=== PATIENT | male | born 1970 ===

== ENCOUNTER 2023-12-31 10:13 | Emergency (ER) | payer OTHER, SELFPAY ==
--- NOTE | ~2023-12-31 | XR_ITS ---
EXAMINATION: XR HAND, LEFT CLINICAL INFORMATION: Pain after injury COMPARISON: None available. TECHNIQUE: PA, lateral, and oblique views of the left hand. FINDINGS: Comminuted displaced fracture involving the tuft of the third finger. There is overlying soft tissue edema and soft tissue lucencies consistent with lacerations. No definitive radiopaque foreign bodies. Other visualized portion of the left hand are grossly unremarkable. XR/XR hand LT min 3V IMPRESSION: Comminuted displaced fracture involving the tuft of the third finger. Electronically signed by: Teodoro Lang MD 12/31/2023 12:35 PM EDT
[2023-12-31 10:26] VITALS: BP 119/56; PULSE 76; RESP 18; TEMP 36.8; O2SAT 99; BMI 29.2
--- NOTE | 2023-12-31 11:08 | ED_ITS ---
HPI - General Adult General Chief complaint: Wound/Laceration Stated complaint: laceration l middle finger Time Seen by Provider: 12/31/23 11:08 Source: patient Mode of arrival: ambulatory Limitations: no limitations History of Present Illness ED Provider: Yelena Pond PA-C HPI narrative: Patient is a 53 year old assigned male at with a history of T2DM presenting to the emergency department today with left middle finger pain. Patient states that on 12/30/2023 at 1700 he was moving large metal boxes when one cut his left middle finger. Patient denies any dizziness, lightheadedness, abdominal pain, nausea, vomiting, fever, chills, blurry vision, double vision, loss of vision, chest pain, difficulty breathing, shortness of breath, back pain, night sweats, pain with urination, increased urinary frequency, increased urinary urgency, blood in his urine or stool, syncope or a near syncopal episode, bowel incontinence, bladder incontinence, or any other complaints at this time. Onset (ago): day(s) (1) Location: left and upper extremity (3rd finger) Severity: mild Severity scale (1-10): 4 Quality: aching and dull Pain Consistency: constant Relieving factors: none Exacerbating factors: none Associated symptoms: denies other symptoms Related Data Previous Rx's ?Medication ?Instructions ?Recorded amoxicillin 875 mg-potassium 1 tab PO BID 10 days #20 tabs 12/31/23 clavulanate 125 mg tablet Allergies Allergy/AdvReac Type Severity Reaction Status Date / Time No Known Allergies Allergy Verified 12/31/23 10:28 [No Known Allergies*] Review of Systems 2 Constitutional: Constitutional: Reports no additional constitutional complaints, Denies chills, Denies fever(s) and Denies night sweats Eyes: Eyes: Reports no additional eye complaints, Denies blurry vision, Denies change in vision, Denies diplopia, Denies eye discharge, Denies loss of vision and Denies eye pain ENT: Denies dizziness Cardiovascular: Cardiovascular: Reports no additional cardiovascular complaints, Denies chest pain, Denies lightheadedness, Denies Loss of Consciousness and Denies dyspnea Respiratory: Respiratory: Reports no additional respiratory complaints and Denies dyspnea Gastrointestinal: Gastrointestinal: Reports no additional gastrointestinal complaints, Denies abdominal pain, Denies melena, Denies hematochezia, Denies change in bowel habits and Denies change in stool character Genitourinary: Genitourinary: Reports no additional male genitourinary complaints, Denies hematuria, Denies oliguria, Denies difficulty urinating, Denies dysuria, Denies urinary frequency, Denies urinary hesitancy, Denies urinary incontinence and Denies urinary urgency Musculoskeletal: Musculoskeletal: Reports no additional musculoskeletal complaints, Denies numbness and Denies tingling Comments: left 3rd finger injury Neurologic: Denies dizziness, Denies loss of vision, Denies numbness and Denies tingling Psychiatric: Psychiatric: Reports no additional psychiatric complaints Endocrine: Endocrine: Reports no additional endocrine complaints Hematologic/Lymphatic: Hematologic/Lymphatic: Reports no additional hematologic/lymphatic complaints Allergic/Immunologic: Allergic/Immunologic: Reports no additional allergic/immunologic complaints PMFSH Past Medical History Attestation statement: The following information was validated with the patient. Source: old records reviewed and nursing notes reviewed Social History Social History Advance Directives: No Advance Directives Information Provided: No Do you have a plan to hurt others: No Plan Physical Exam ED Vital Signs: Vital Signs - 24 hr 12/31/23 10:26 12/31/23 13:31 Temperature 98.3 F 98.3 F Pulse Rate 76 76 Respiratory Rate 18 18 Blood Pressure 119/56 L 119/56 L Pulse Oximetry 99 99 Oxygen Delivery Method Room Air Room Air BMI result Body Mass Index 29.2 Const General: cooperative, no acute distress, alert and awake Nutritional Appearance: well nourished Orientation/consciousness: patient oriented x3 Limitations: no limitations [facility] Head: Yes normal to inspection and Yes atraumatic Ears: hearing grossly normal bilaterally and external ears normal General nose exam: Normal external nose present, no nasal discharge noted and no epistaxis Face and sinus: Yes normal facial exam, No abrasion and No laceration Mouth: Normal oral and palatal mucosa present, no drooling and no muffled voice Eyes General: appearance normal, both eyes and all related structures Periorbital: periorbital findings normal Eyelids: Yes eyelids normal Conjunctivae: conjunctivae normal Pupils: Equal, round and reactive pupils present EOM: EOMs intact bilaterally Neck Neck: Yes normal visual inspection, Yes full ROM and Yes no lymphadenopathy Chest Chest palpation & inspection: normal inspection of the chest Resp Effort & Inspection: normal respiratory effort and able to speak in complete sentences GI Inspection: Yes normal to inspection Neuro General: patient oriented x3 and moves all extremities Cranial nerves: Yes Equal, round and reactive pupils present Cognition (Neuro): normal cognition Extrem Other: Psych Appearance: grossly normal Mental Status: mental status grossly normal Affect: normal affect Attitude: cooperative Thought process: Normal thought process present Thought content: Normal thought content present Insight: Good insight present (Psych) Medications Administered Discontinued Medications Generic Name Dose Route Start Last Admin Trade Name Freq PRN Reason Stop Dose Admin Diphtheria/Tetanus/Acell Pertussis 0.5 ml 12/31/23 11:08 12/31/23 11:24 Diphth,Pertus(Acell),Tet Adult 0.5 Ml Syringe IM 12/31/23 11:09 0.5 ml .ONCE ONE Administration Piperacillin Sod/Tazobactam 50 mls @ 100 mls/hr 12/31/23 12:01 12/31/23 12:57 Sod 3.375 gm/ Sodium Chloride IV 12/31/23 12:30 Infused ONCE ONE Infusion Medical Decision Making Medical Decision Making MDM Narrative: Patient is a 53 year old assigned male at with a history of T2DM presenting to the emergency department today with a left 3rd finger injury. Patient's physical exam was as noted in the physical exam portion of this note. Patient's left hand x-ray showed a comminuted displaced fracture involving the tuft of the third finger. I spoke to the orthopedic team who recommended applying a non-stick gauze and wrapping it as best as possible, starting ABX, and having the patient follow up on an outpatient basis. I explained my physical exam findings as well as all test results to the patient. I answered all questions asked by the patient. I stressed the importance of the patient taking his medication as directed (either prescribed or as the over the counter packaging recommends). I stressed the importance of the patient following up with his primary care provider and the orthopedic team. I stressed the importance of the patient returning to the emergency department immediately if his symptoms were to worsen or if he were to develop any dizziness, shortness of breath, difficulty breathing, chest pain, blurry vision, loss of vision, nausea, vomiting, abdominal pain, fever, chills, back pain, or any other complaints. Patient verbalized agreement and understanding with this treatment plan and discharge. Patient's left 3rd digit was wrapped with a non-stick gauze and roll gauze, without incident. PMS intact prior to and after bandage placement. Differential Diagnosis Differential Diagnoses: The differential diagnosis associated with the presentation includes Laceration Fracture Partial amputation Admission/Observation Consideration of admission/observation: Escalation of care including admission/observation considered Patient would have been admitted to the hospital had his work up had any findings where hospital admission was appropriate and his clinical presentation warranted hospital admission. Consult Healthcare Provider Management of the patient was discussed with: Silviculturist (spoke with the ortho team as noted in the MDM Rationale portion of this note.) Lab Data [facility] Lab Attestation statement: I reviewed the patient's lab results. My interpretation of these studies and their corresponding values is that they are grossly normal compared to the patient's baseline. 12/31/23 12:15 12/31/23 12:15 Labs: Lab Results 12/31/23 Range/Units 12:15 WBC 9.7 (4.8-10.8) X10*3/uL RBC 4.60 (4.60-5.80) X10*6/uL Hgb 13.8 L (14.0-18.0) g/dl Hct 39.3 L (42.0-52.0) % MCV 85.4 (80.0-98.0) fL MCH 30.0 (27.0-33.0) pg MCHC 35.1 (31.0-36.0) g/dl RDW 12.2 (11.0-16.0) % Plt Count 280 (160-400) X10*3/uL MPV 10.2 (9.4-12.4) fL Immature Gran % (Auto) 0.4 (0.0-0.4) % Neut % (Auto) 62.1 (45-73) % Lymph % (Auto) 30.6 (20-40) % Converse % (Auto) 5.8 (2-11) % Eos % (Auto) 0.9 (0-4) % Baso % (Auto) 0.2 (0-2) % Lymph # (Auto) 3.0 (1.2-4.9) X10*3/uL Converse # (Auto) 0.6 (0.1-1.2) X10*3/uL Eos # (Auto) 0.1 (0.0-0.4) X10*3/uL Baso # (Auto) 0.0 (0.0-0.2) X10*3/uL Abs Immat Gran (auto) 0.04 H (0.00-0.03) X10*3/uL Absolute Neuts (auto) 6.0 (2.0-8.3) x10*3/uL Absolute Nucleated RBC 0.000 (0.0-0.012) X10*3/uL Nucleated RBC % (auto) 0.0 (0.0-0.2) /100WBC ESR 12 (0-15) MM/HR Sodium 139 (135-145) mmol/L Potassium 4.2 (3.3-5.1) mmol/L Chloride 104 (96-108) mmol/L Carbon Dioxide 26 (22-29) mmol/L Anion Gap 13 (12-20) BUN 12 (9-16) mg/dL Creatinine 0.78 (0.5-1.4) mg/dL Estim Creat Clear Calc 107.7 Estimated GFR > 60 Random Glucose 263 H (60-115) mg/dL Calcium 9.5 (8.4-10.2) mg/dL Total Bilirubin 0.6 (0.0-1.0) mg/dL AST 14 (5-37) U/L ALT 17 (0-40) U/L Alkaline Phosphatase 105 (39-117) U/L C-Reactive Protein 0.38 (< or = 0.50) mg/dL Total Protein 7.4 (6.5-8.0) g/dL Albumin 4.3 (3.5-5.0) g/dL Independent Interpretation I performed an independent interpretation of an: Plain X-Ray Interpretation: My interpretation is in agreement with the radiologist's impression of this imaging study. L EXAMINATION: XR HAND, LEFT CLINICAL INFORMATION: Pain after injury COMPARISON: None available. TECHNIQUE: PA, lateral, and oblique views of the left hand. FINDINGS: Comminuted displaced fracture involving the tuft of the third finger. There is overlying soft tissue edema and soft tissue lucencies consistent with lacerations. No definitive radiopaque foreign bodies. Other visualized portion of the left hand are grossly unremarkable. XR/XR hand LT min 3v IMPRESSION: Comminuted displaced fracture involving the tuft of the third finger. Electronically signed by: Teodoro Lang MD 12/31/2023 12:35 PM EDT RP Dictated By: Tedooro Lang MD Signed By: Electronically signed by Teodoro Lang MD 12/31/23 2024 Radiology Impression Discussion of test interpretation with radiology: I have reviewed the radiologist's reading. Prescription Management I considered prescription management with: Antibiotic (patient prescribed prophylactic antibiotic) Chronic Conditions Patient?s care impacted by: Diabetes Discharge Plan Discharge Clinical Impression: Finger laceration, Finger fracture Patient Disposition: Home, Self-Care Instructions: Finger Fracture (ED), Finger Laceration (ED) Additional Instructions: Follow up with your primary care provider and an orthopedic provider. Take your antibiotic as prescribed. The bandage on your finger should never be so tight that your finger begins to lose feeling / sensation - if it is, please loosen / remove it and return to the ER. Return to the emergency department immediately if your symptoms worsen or if you develop any dizziness, shortness of breath, difficulty breathing, chest pain, blurry vision, loss of vision, nausea, vomiting, abdominal pain, fever, chills, back pain, or any other complaints. Prescriptions: New amoxicillin-pot clavulanate 875-125 mg tablet 1 tab PO BID 10 Days Qty: 20 0RF Referrals: [facility] [place] [facility] [Provider Group] (Call to establish and follow up with an orthopedic provider for your partial amputation. ) Cat Miranda PA [Primary Care Provider] - Stand Alone Forms: Work/School Release Interventions: ED Discharge Assessment Last Done: 12/31/23 13:31 Discharge Date/Time: 12/31/23 13:32 Print Language: Pakistani
[2023-12-31] MEDS: Diphth,Pertus(ACell),Tet Adult 0.5 ML SYRINGE IM (11:24)
[2023-12-31] MEDS: Piperacillin Sodium/Tazobactam 3.375 GM in 0.9 % Sodium Chloride 50 ML IV (12:26)
[2023-12-31 12:31] LABS: MANUAL DIFF FLAG NO
[2023-12-31 12:34] LABS: Basophils Percent Auto 0.2 % (0-2); Eosinophils Absolute Auto 0.1 X10*3/uL (0.0-0.4); Eosinophils Percent Auto 0.9 % (0-4); Hematocrit 39.3 % (42.0-52.0); Hemoglobin 13.8 g/dl (14.0-18.0); Imm Gran Abs Auto 0.04 X10*3/uL (0.00-0.03); Imm Gran Pct Auto 0.4 % (0.0-0.4); Lymphocytes Percent Auto 30.6 % (20-40); Mean Corpuscular HGB Conc 35.1 g/dl (31.0-36.0); Mean Corpuscular Volume 85.4 fL (80.0-98.0); Mean Platelet Volume 10.2 fL (9.4-12.4); Monocytes Absolute Auto 0.6 X10*3/uL (0.1-1.2); Monocytes Percent Auto 5.8 % (2-11); Neutrophils Percent Auto 62.1 % (45-73); Platelet Count 280 X10*3/uL (160-400); Red Cell Distribution Width 12.2 % (11.0-16.0); White Blood Count 9.7 X10*3/uL (4.8-10.8)
[2023-12-31 12:48] LABS: Alanine Aminotransferase 17 U/L (0-40); Albumin Level 4.3 g/dL (3.5-5.0); Alkaline Phosphatase 105 U/L (39-117); Anion Gap 13 (12-20); Aspartate Amino Transferase 14 U/L (5-37); Bilirubin Total 0.6 mg/dL (0.0-1.0); Blood Urea Nitrogen 12 mg/dL (9-16); C Reactive Protein 0.38 mg/dL (< or = 0.50); Calcium 9.5 mg/dL (8.4-10.2); Carbon Dioxide 26 mmol/L (22-29); Chloride 104 mmol/L (96-108); Creatinine Clr Calc Pharmacy 107.7; Estimated Glomerular Filt Rate > 60; Glucose Random 263 mg/dL (60-115); Potassium 4.2 mmol/L (3.3-5.1); Sodium 139 mmol/L (135-145); Total Protein 7.4 g/dL (6.5-8.0)
[2023-12-31 13:12] LABS: Erythrocyte Sedimentation Rate 12 MM/HR (0-15)
[2023-12-31 13:31] VITALS: BP 119/56; PULSE 76; RESP 18; TEMP 36.8; O2SAT 99
== END 2023-12-31 13:32 | disposition home or self-care (01) ==
PROVIDERS: Physician Assistant Medical; Emergency Provider Emergency Medicine; PCP Physician Assistant
DX: S62.603B Fracture of unspecified phalanx of left middle finger, initial encounter for open fracture (principal); W26.8XXA Contact with other sharp object(s), not elsewhere classified, initial encounter; Y93.9 Activity, unspecified; Y92.9 Unspecified place or not applicable; Y99.9 Unspecified external cause status
CPT/HCPCS: 36415; 73130; 80053; 85025; 85652; 86140; 90471; 90715; 96365; 99283; 99284; J2543

== ENCOUNTER 2024-01-04 12:35 | Outpatient (REF) | payer OTHER, SELFPAY ==
--- NOTE | ~2024-01-04 | XR_ITS ---
EXAMINATION: XR HAND, LEFT CLINICAL INFORMATION: Traumatic amputation third digit COMPARISON: Left hand 12/31/2023 TECHNIQUE: PA, lateral, and oblique views of the left hand. FINDINGS: There is a comminuted fracture involving the terminal tuft of the distal phalanx of the third digit. Soft tissue on the dorsal surface is missing consistent with the history of amputation. No other fractures are seen. No radiopaque foreign bodies are seen. There has been no interval change since 12/31/2023. XR/XR hand LT min 3V IMPRESSION: Comminuted fracture involving the distal phalanx of the third digit. Electronically signed by: Jefry Omalley MD 01/04/2024 08:18 PM EDT
== END 2024-01-04 12:36 | disposition home or self-care (01) ==
LOC: HO.HOSX 12:35
PROVIDERS: PCP Physician Assistant
DX: S62.635A Displaced fracture of distal phalanx of left ring finger, initial encounter for closed fracture (principal); W26.8XXA Contact with other sharp object(s), not elsewhere classified, initial encounter; Y93.9 Activity, unspecified; Y92.9 Unspecified place or not applicable; Y99.9 Unspecified external cause status
CPT/HCPCS: 73130

== ENCOUNTER 2024-01-04 12:59 | Outpatient (AMB) | payer OTHER, SELFPAY ==
--- NOTE | 2024-01-04 13:12 | A.OFFVIS_ITS ---
Vital Signs 01/04/24 13:17 Height 5 ft 6 in Weight 176 lb BMI 28.4 Handedness Right Intake Visit Reasons: FC-ED f/u left 3rd finger fracture DOI 12/30/23 Intake Note: Ricky is a 53 year old right hand dominant male who presents today with his partner as a new patient for an ED follow up of his left middle finger laceration, DOI: 12/30/2023. Patient state he was moving metal boxes when they cut his middle finger. Not related to work. Patient reports no current pain but if he bangs his finger on accident he has pain. He is unable to make a full closed fist. He expresses he does not have sensation at the tip of his left middle finger. Denies tingling. Hx of DM. Last A1c lab drawn on 12/14/23 and was an 11.9 Accompanied by: Significant Other Allergies No Known Allergies [No Known Allergies*] Allergy (Verified 01/04/24 13:17) HPI HPI FC-ED f/u left 3rd finger fracture DOI 12/30/23: Details: Patient is a 53-year-old male who presents for ED follow-up for left middle f lucius traumatic partial amputation, date of injury 12/30/2023. The patient reports that he was moving some boxes, when a large metal box fell onto his finger, and when he attempted to pull his finger out from under the box, a large chunk of his finger was removed from the distal portion of the finger. The patient was previously evaluated in the ED, where x-rays revealed a comminuted distal tuft fracture with some portions of the bone missing. Today, the patient reports that he is not experiencing much pain at baseline, but if anything touches the area of the injury, it does bother him significantly. Patient reports normal sensation to the area around the wound. Patient denies any pus or purulent discharge from the wound. No other acute complaints or concerns at this time. Review of Systems Const All systems reviewed & are unremarkable except as noted in HPI and below Physical Exam Vital Signs: BMI result Body Mass Index 28.4 Extrem Other: Patient is alert, oriented, and in no acute distress. Neuro: Patient reports normal sensation to the left middle finger proximal to the wound site Patient reports normal sensation of the tips of all other digits of the left hand at this time Vascular: Cap refill brisk Pain: Patient reports no pain at baseline No tenderness to palpation proximal to the wound on the left middle finger Patient reports discomfort when he attempts to make a closed fist, as the patient's left index finger touches the area of the wound on hospital finger. Skin: Open wound with exposed bone noted on the most distal portion of the left middle finger, with no evidence of fingernail remaining No active discharge at this time No slough or eschar noted No purulence or pus noted General: There is Noted to be erythema surrounding the wound site No ecchymosis No further evidence of infection noted Psych: Appears grossly normal Affect normal Attitude cooperative Results Reviewed Results Reviewed: X-rays obtained in the office today and independently reviewed by me, Ramo Gudino PA-C, demonstrate comminuted tuft fracture of the distal phalanx of the left middle finger with the radial aspect of the distal tuft missing. Assessment & Plan Assessment & Plan (1) Open fracture of phalanx of left middle finger: Code(s): S62.603B - Fracture of unspecified phalanx of left middle finger, initial encounter for open fracture Category: Medical Plan 1. Open fracture of distal phalanx of the left middle finger Date of injury 12/30/2023 I educated the patient about the condition. I discussed both operative and nonoperative treatment options. The patient would like to proceed with surgery. The risks and benefits of operative treatment were discussed with the patient and the patient wishes to proceed with surgery. These risks include, but are not limited to, risk of damage to blood vessels, nerves, tendons, infection, recurrence, incomplete relief of preoperative symptoms, persistent pain, possible need for further surgery, and the risks associated with regional blocks and/or anesthesia. Plan is to take the patient to the operating room on 01/09/2024 for the following procedures: 1. Left middle finger distal phalanx amputation revision, I and D, and potential germinal matrix excision All of the preoperative paperwork including the consent was discussed today. All of the patient's questions were answered in the clinic today. The patient understands that they will be in contact with our operating room surgical technologist to discuss scheduling their procedure. Patient does report that he does have diabetes with last A1c of 11.9 being drawn approximately 1 month ago Denies blood thinners, asthma, heart issues, lung issues, kidney issues, or current smoking. Orders: Orders XR hand LT min 3V Today M79.642 - Pain in left hand Coding Level of Care Code New Pt Level 4 (62032) Diagnoses Open fracture of phalanx of left middle finger S62.606V
[2024-01-04 13:17] VITALS: BMI 28.4
== END 2024-01-04 14:35 | disposition home or self-care (01) ==
PROVIDERS: PCP Physician Assistant
DX: S62.633B Displaced fracture of distal phalanx of left middle finger, initial encounter for open fracture (principal)
CPT/HCPCS: 99204

== ENCOUNTER 2024-01-09 09:24 | Day surgery (SDC) | payer OTHER, SELFPAY ==
--- NOTE | 2024-01-05 14:15 | HO.ANESPROP2 ---
HPI - Anesthesia Eval Consult details Narrative: 53yo M for Left Middle Finger Amputation revision, I + D, possible germinal excision No PMHx documented by surgical provider. Likely DM, HTN, HLD based on rx list. Anesthesia Pre-Procedure Meds Is the patient on any of the following meds?: GLP1/DPP4 PMFSH Active Problems Active Problems: All Active Problems Open fracture of phalanx of left middle finger (Acute) Meds Allergies Allergy/AdvReac Type Severity Reaction Status Date / Time No Known Allergies Allergy Verified 01/04/24 13:17 [No Known Allergies*] Home Medications ?Medication ?Instructions ?Recorded ?Confirmed ?Last Taken ?Type dulaglutide 1.5 mg/0.5 mL 1.5 mg subcut QWEEK 01/04/24 Unknown History subcutaneous pen injector (Trulicity) insulin glargine 100 unit/mL (3 55 unit subcut DAILY 01/04/24 Unknown History mL) subcutaneous pen (Lantus Solostar U-100 Insulin) lisinopril 20 mg tablet 20 mg PO DAILY 01/04/24 Unknown History metformin 1,000 mg tablet 1,000 mg PO BID 01/04/24 Unknown History pravastatin 40 mg tablet 40 mg PO DAILY 01/04/24 Unknown History Exam Pertinent Lab Results Pertinent Lab Results: Laboratory Tests 12/31/23 12:15 WBC 9.7 Hgb 13.8 L Hct 39.3 L Plt Count 280 Sodium 139 Potassium 4.2 Chloride 104 Carbon Dioxide 26 BUN 12 Creatinine 0.78 Assessment and Plan Assessment Anesthesia Assessment: Chart Reviewed
[2024-01-09 10:20] VITALS: BMI 27.3
[2024-01-09 10:40] VITALS: BP 141/87; PULSE 81; RESP 15; TEMP 36.5; O2SAT 97
[2024-01-09 11:05] LABS: Glucose, Whole Blood 234 mg/dL (60-115)
--- NOTE | 2024-01-09 11:08 | PC.NURSE ---
AFTER DISCUSSING OPTIONS WITH SURGEON, PT DECIDED TO GO UNDER LOCAL ONLY IT'S THE SAFEST CHOICE. NO ANESTHESIA TO BE USED. NO IV ACCESSED.
--- NOTE | 2024-01-09 11:29 | MHC.SHP ---
Pre-Procedural Eval Section A - 24 Hr Update-Section A only Date of Service: 01/09/24 The patient is an INPATIENT: No Changes since office visit: No Cold of Flu in the past 2 weeks, No New Medical Problems, No Changes in Medication and No Patient answered all questions The patient has been examined within 24 hours of the surgical procedure. The History & Physical has been completed within 30 days and I have reviewed it.: Yes Section B - Complete if H&P > 30 days Chief Complaint: Fracture of unspecified phalanx of left middle fin Allergies: Allergies Allergy/AdvReac Type Severity Reaction Status Date / Time No Known Allergies Allergy Verified 01/09/24 10:20 [No Known Allergies*] Exam Exam Comment: Patient was seen and evaluated by me in preop hold. He has a left middle finger tip amputation. We went over the risks and benefits of having this done under local anesthesia rather than general anesthesia, especially given the fact that he is on Mounjaro and last took it about 6 days ago. He has decided that he wishes to proceed with the safest option which would be to have this done under local anesthesia. Plan Diagnosis/Plan: Unchanged I have reviewed the history and physical and performed a pertinent physical examination on my patient. No changes have occurred unless specified. The risks and benefits of operative treatment were discussed with the patient and the patient wishes to proceed with surgery. These risks include, but are not limited to risk of damage to blood vessels, nerves, tendons, infection, recurrence, incomplete relief of preoperative symptoms, persistent pain, possible need for further surgery and the risks associated with regional blocks and anesthesia. The plan is to take the patient to the operating room today for the following procedures: 1. Left middle finger tip revision amputation 2. I and D of open distal phalanx fracture 3. Excision of sterile and germinal nail matrices All of the preoperative paperwork including the consent was filled out today and signed. All the patient's questions were answered. Time Spent With Patient Time: Total time managing care of this patient today ____ minutes.
--- NOTE | 2024-01-09 11:39 | P.OP_ITS ---
Operative Note Operative Note Date of Service: 01/09/24 Narrative: Operative Note Narrative: Preop diagnosis: 1. Left middle finger tip Amputation 2. Left middle finger open distal phalanx fracture 3. Left middle finger nail bed injury Postop diagnosis: Same Procedure: 1. Left middle finger Revision amputation 2. Left middle finger I and D of open fracture 3. Left middle finger Excision of germinal and sterile nail matrices Surgeon: Junie Frausto MD Visual Merchandise Manager: None Anesthesia: General Anesthesia Findings: Tip amputation involving the distal phalanx and the nail bed. No appreciable nail bed left distal to the eponychial fold. Implants: None Tourniquet time: 0 minutes EBL: 5.0 ml Specimen: None Drains: None Complications: None Disposition: Brought to the recovery room in stable condition Plan: Follow-up in 7-8 days for wound check Anticipate suture removal in 3 weeks Continue antibiotics until finished, a new prescription for 2 additional days of Augmentin was given Indications: The patient is 53 years old with a left middle fingertip amputation . The risks and benefits of operative treatment, including but not limited to risk of damage to blood vessels, nerves, tendons, infection, recurrence, persistent pain or numbness, incomplete resolution of preoperative symptoms, or need for further surgery were discussed with the patient and they wished to proceed with surgery. We also discussed the risks and benefits at length to perform this under general anesthesia versus local anesthesia. Patient is on Mounjaro and last took that dose 6 days ago. The patient has elected to undergo the procedure under a digital block. Procedure: Once consent was obtained a digital block was performed on the patient's left middle finger in preop hold. The patient was brought back to the operating suite and placed in the operating table in a supine position. A tourniquet was applied to the proximal aspect of the left upper extremity and the limb was prepped and draped in a standard surgical fashion. The tourniquet was not inflated. A finger tourniquet was applied to the base of the left middle finger for fewer than 30 minutes. The amputation site was debrided of nonviable tissue. A good-sized loose bony fragment was found and removed. There was no appreciable nail bed left distal to the eponychial fold, thus the decision was made to proceed with an excision of the germinal matrix to prevent regrowth of the finger nail. ?Our attention was turned to the nail bed.? ?Because of the severity of this injury it was felt that the nail apparatus to would be best removed.? The sterile and germinal matrices were carefully excised using a 15. Blade and then a rongeur.? ? The skin edges at the paronychial fold and soft tissue injury were freshened using a 15. Blade or iris scissors removing only approximately 1 mm to facilitate healing at the skin edges. The end of the bone was irrigated and debrided using a curette where necessary and also shortened using either rongeur or a bone biter as appropriate. The end of the bone was remove the sharp edges as possible using a small rongeur. The ends of the digital nerves were shortened as indicated. The wound was again copiously irrigated with normal saline. He had a good volar flap of tissue for coverage of the distal end of the distal phalanx. The distal tissues were appropriately shaped and then reapproximated using some 4-0 Prolene suture material. At this point the tourniquet was deflated and hemostasis obtained with a brief period of local pressure and a sterile dressing was applied. The patient appears to have tolerated the procedure well and with no complications. All digits were well vascularized conclusion of the case.
[2024-01-09 13:30] VITALS: BP 155/87; PULSE 85
== END 2024-01-09 13:33 | disposition home or self-care (01) ==
PROVIDERS: PCP Physician Assistant; Visit Provider Orthopaedic Surgery
PROC: (CPT 26951; principal; 2024-01-09 11:10)
DX: S62.633B Displaced fracture of distal phalanx of left middle finger, initial encounter for open fracture (principal); W26.8XXA Contact with other sharp object(s), not elsewhere classified, initial encounter; Y93.89 Activity, other specified; Y92.9 Unspecified place or not applicable; Y99.8 Other external cause status; E11.9 Type 2 diabetes mellitus without complications; I10 Essential (primary) hypertension; E78.00 Pure hypercholesterolemia, unspecified; Z79.4 Long term (current) use of insulin; Z79.84 Long term (current) use of oral hypoglycemic drugs; Z79.85 Long-term (current) use of injectable non-insulin antidiabetic drugs; Z79.899 Other long term (current) drug therapy; Z87.891 Personal history of nicotine dependence
CPT/HCPCS: 26236; 82947

== ENCOUNTER → 2024-01-09 09:24 | Outpatient (BNV) | payer OTHER, SELFPAY | PROVIDERS: PCP Physician Assistant; Visit Provider Orthopaedic Surgery | DX: S62.633B Displaced fracture of distal phalanx of left middle finger, initial encounter for open fracture (principal) | CPT/HCPCS: 26951 ==

== ENCOUNTER 2024-01-17 10:32 | Outpatient (AMB) | payer OTHER, SELFPAY ==
[2024-01-17 10:57] VITALS: BMI 27.3
--- NOTE | 2024-01-17 10:57 | MHC.OFFVIS ---
Vital Signs 01/17/24 10:57 Height 5 ft 6 in Weight 169 lb BMI 27.3 Intake Visit Reasons: PO 1 week LT MF rev amp 01/09/24 AR Intake Note: Ricky is a 53 yo right hand dominant male who presents today post operatively s/p left middle finger revision amputation done 01/09/[address] Frausto. Patient reports he is taking Motrin for pain with relief. He states he finished his antibiotic treatment. Denies numbness, tingling, or finger locking. Allergies No Known Allergies [No Known Allergies*] Allergy (Verified 01/17/24 10:57) HPI HPI PO 1 week LT MF rev amp 01/09/24 AR: Details: Ricky is a 53 year old right hand dominant man who presents S/P left middle finger revision amputation, I&D of open fracture, and excision of nail matrices, DOS: 01/09/24. He says he is doing well overall. He has some pain but manages this with Motrin. He has completed his course of Abx. He denies any numbness or tingling. [facility] Medical History (Updated 01/17/24 @ 11:32 by Mil Morel) Diabetes Elevated cholesterol HTN (hypertension) Social History Patient Tobacco Use Status: Former Tobacco user Review of Systems Const All systems reviewed & are unremarkable except as noted in HPI and below Physical Exam Vital Signs: BMI result Body Mass Index 27.3 Const General: no acute distress and alert Orientation/consciousness: patient oriented x3 Neuro General: patient oriented x3 Extrem Other: The patient was alert oriented and in no acute distress The incision is healing well with no erythema drainage or evidence of infection. Wound is slowly healing. There is still some motion at the incision site without a yet appearing to have sealed over. Again he is a diabetic. He can make a fist and extend all his digits. With encouragement I can get him to actively flex the middle finger to nearly touch the tip to his palm and then back into extension. Sensation is intact Cap refill is brisk Radiographs: 3 views of the left hand, with attention to the middle finger, were taken and viewed by me today in clinic. They show a middle finger revision amputation through the distal phalanx, slightly shorter than before surgery. Removal of areas of comminution.. Psych Appearance: grossly normal Affect: normal affect Attitude: cooperative Assessment & Plan Assessment & Plan (1) Open fracture of phalanx of left middle finger: Code(s): S62.603B - Fracture of unspecified phalanx of left middle finger, initial encounter for open fracture Category: Medical (2) Diabetes: Code(s): E11.9 - Type 2 diabetes mellitus without complications Category: Medical (3) Partial traumatic amputation of left middle finger through phalanx: Code(s): S68.623A - Partial traumatic transphalangeal amputation of left middle finger, initial encounter Category: Medical Plan Assessment & Plan: 1. Left middle finger partial amputation, S/P A) revision amputation B) I&D of open fracture C) excision of germinal & sterile nail matrices DOS: 01/09/24 The patient appears to be doing well post-operatively I educated him about the post-operative course I explained the signs and symptoms of infection, if the patient develops any new or worsening erythema, drainage, pain, or warmth they should contact the clinic or attend the ED. I educated him about wound care, and keeping the wound clean. I discussed activity modifications, he is to lift nothing heavier than a cellphone at this time He will perform gentle ROM exercises at home He should avoid any underwater activities at this time He will follow up in 2 weeks for a wound check and likely suture removal, depending on healing Scribed for Junie Frausto MD by Mil Morel medical clerk, on 01/17/24 at 11:20 AM, EST. Orders: Orders XR hand LT min 3V Today M79.642 - Pain in left hand Coding Level of Care Code Global (17860) Diagnoses Open fracture of phalanx of left middle finger S62.603B Diabetes E11.9 Partial traumatic amputation of left middle finger through phalanx S68.623A
== END 2024-01-17 12:16 | disposition home or self-care (01) ==
PROVIDERS: PCP Physician Assistant; Visit Provider Orthopaedic Surgery
DX: S62.603B Fracture of unspecified phalanx of left middle finger, initial encounter for open fracture (principal); E11.9 Type 2 diabetes mellitus without complications; S68.623A Partial traumatic transphalangeal amputation of left middle finger, initial encounter
CPT/HCPCS: 99024

== ENCOUNTER 2024-01-17 13:39 | Outpatient (REF) | payer OTHER, SELFPAY ==
--- NOTE | ~2024-01-17 | XR_ITS ---
EXAMINATION: XR HAND LEFT 3 VIEWS CLINICAL INFORMATION: Pain in left hand M79.642. COMPARISON: XR Left hand 01/04/2024 TECHNIQUE: PA, lateral, and oblique views of the left hand. FINDINGS: There has been amputation at the level of the proximal metaphysis of the left third distal phalanx. Overlying bandage and soft tissue swelling. No other fracture or dislocation is appreciated. No lytic or sclerotic bony lesion is seen. No periosteal reaction is identified. Joint spaces appear maintained. XR/XR hand LT min 3V IMPRESSION: Findings as above. Electronically signed by: Lul Felipe MD 03/30/2024 10:41 AM EST
== END 2024-01-17 13:40 | disposition home or self-care (01) ==
LOC: HO.HOSX 13:39
PROVIDERS: Visit Provider Orthopaedic Surgery
DX: M79.642 Pain in left hand (principal)
CPT/HCPCS: 73130

== ENCOUNTER 2024-01-24 08:35 | Outpatient (REF) | payer OTHER, SELFPAY | END 2024-01-24 08:36 | disposition home or self-care (01) | LOC: HO.HOSX 08:35 | DX: Z13.89 Encounter for screening for other disorder (principal) ==

== ENCOUNTER 2024-02-01 10:03 | Outpatient (AMB) | payer OTHER, SELFPAY ==
--- NOTE | 2024-02-01 10:42 | MHC.OFFVIS ---
Vital Signs 02/01/24 10:44 Height 5 ft 6 in Weight 169 lb BMI 27.3 Handedness Right Intake Visit Reasons: PO 1 week LT MF rev amp 01/09/24 AR-wound check Intake Note: Ricky is a 53 year old right hand dominant male who presents today with his partner post operatively for a wound check s/p left middle finger revision amputation done 01/09/[address] Frausto. Patient reports his finger occasionally feels tender. He says he has been doing daily gentle ROM exercises and daily wound changes. Surgical site appears white. His partner expresses every time they changed his dressing there is some discharge on the gauze. Denies numbness and tingling. Accompanied by: Significant Other Allergies No Known Allergies [No Known Allergies*] Allergy (Verified 02/01/24 10:44) HPI HPI PO 1 week LT MF rev amp 01/09/24 AR-wound check: Details: Ricky is a 53 year old right hand dominant Diabetic man who presents S/P left middle finger revision amputation, I&D of open fracture, and excision of nail matrices, DOS: 01/09/24. He says he is doing well overall. He has some pain but manages this with Motrin. He has been working on ROM exercises and he has been performing daily dressing changes He has completed his course of Abx. He denies any numbness or tingling. His says there is some discharge on the dressing. He says he takes all his Diabetes medication but he has difficulty checking his sugars daily, and he says his diet is poor. He suffers from Gastroparesis and often has a restricted liquid diet. Patient reports last known A1c to be over 11.0. Blood glucose on 01/09/2024 was 234. [facility] Medical History Diabetes Elevated cholesterol HTN (hypertension) Social History Patient Tobacco Use Status: Former Tobacco user Physical Exam Vital Signs: BMI result Body Mass Index 27.3 Const General: no acute distress and alert Orientation/consciousness: patient oriented x3 Neuro General: patient oriented x3 Extrem Other: The patient was alert oriented and in no acute distress Tissue on the pad & distal 1.5cm is dusky in appearance, with slow cap refill Wound at tip of finger is not yet healed, with some yellow-orange drainage seen on the dressing Suture still in place This is mildly tender No generalized erythema Again he is a poorly controlled Diabetic He can make a fist and extend all his digits. With encouragement I can get him to actively flex the middle finger to nearly touch the tip to his palm and then back into extension. Sensation is intact Cap refill is brisk to all other digits Psych Appearance: grossly normal Affect: normal affect Attitude: cooperative Assessment & Plan Assessment & Plan (1) Open fracture of phalanx of left middle finger: Code(s): S62.603B - Fracture of unspecified phalanx of left middle finger, initial encounter for open fracture Category: Medical (2) Diabetes: Code(s): E11.9 - Type 2 diabetes mellitus without complications Category: Medical (3) Partial traumatic amputation of left middle finger through phalanx: Code(s): S68.623A - Partial traumatic transphalangeal amputation of left middle finger, initial encounter Category: Medical Plan Assessment & Plan: 1. Left middle finger partial amputation, S/P A) revision amputation B) I&D of open fracture C) excision of germinal & sterile nail matrices DOS: 01/09/24 2. Diabetes, poorly controlled The patient appears to be healing slowly post-operatively, likely related to his poorly controlled Diabetes I educated him about the post-operative course, and I had a long discussion with him regarding managing his Diabetes & the effects of poorly managed Diabetes on wound healing & recovery. He says he will reach out to his PCP today concerning his Diabetes management Some sutures removed today in clinic I explained the signs and symptoms of infection, if the patient develops any new or worsening erythema, drainage, pain, or warmth they should contact the clinic or attend the ED. Out of an abundance of caution I ordered a 10-day course of PO Augmentin I educated him about wound care, and keeping the wound clean. I explained that if he continues to have difficulty with would healing he may require a second revision amputation. I discussed activity modifications, he is to lift nothing heavier than a cellphone at this time He will perform gentle ROM exercises at home He should avoid any underwater activities at this time He was given a note for work to remain out of work at this time until his next appointment. He works as a [employer]. He will follow up next week with HEATHER Ralph for a wound check and possible suture removal, depending on healing Scribed for Junie Frausto MD by Mil Morel, medical care manager, on 02/01/24 at 11:05 AM, EST. Medications: New amoxicillin-pot clavulanate 875-125 mg 1 tab PO Q12H 20 tabs 0RF Coding Level of Care Code Global (11255) Diagnoses Open fracture of phalanx of left middle finger S62.603B Diabetes E11.9 Partial traumatic amputation of left middle finger through phalanx S68.623Q
[2024-02-01 10:44] VITALS: BMI 27.3
== END 2024-02-01 11:29 | disposition home or self-care (01) ==
PROVIDERS: PCP Physician Assistant; Visit Provider Orthopaedic Surgery
DX: S62.603B Fracture of unspecified phalanx of left middle finger, initial encounter for open fracture (principal); E11.9 Type 2 diabetes mellitus without complications; S68.623A Partial traumatic transphalangeal amputation of left middle finger, initial encounter
CPT/HCPCS: 99024

== ENCOUNTER → 2024-02-01 10:03 | Outpatient (BNVA) | payer OTHER, SELFPAY | PROVIDERS: PCP Physician Assistant; Visit Provider Orthopaedic Surgery ==

== ENCOUNTER 2024-02-10 13:20 | Outpatient (AMB) | payer OTHER, SELFPAY ==
[2024-02-10 13:22] VITALS: BMI 27.3
--- NOTE | 2024-02-10 13:22 | A.OFFVIS_ITS ---
Vital Signs 02/10/24 13:22 Height 5 ft 6 in Weight 169 lb BMI 27.3 Intake Visit Reasons: PO 1 week LT MF rev amp 01/09/24 AR-wound check Intake Note: Ricky is a 53 year old male who presents to the office today for a PO 1 week LT MF rev amp 01/09/24 AR-wound check. Allergies No Known Allergies [No Known Allergies*] Allergy (Verified 02/15/24 13:01) HPI HPI PO 1 week LT MF rev amp 01/09/24 AR-wound check: Details: Patient is a 53-year-old male who presents for one-week postoperative evaluation status post left middle finger revision amputation, DOS 01/09/2024. Today, the patient reports that he does feel that his healing has improved slightly since previous evaluation, and he feels there is increased blood flow to the wound site. The patient also reports that his pain has improved since last evaluation. No other acute complaints or concerns at this time. [facility] Medical History Diabetes Elevated cholesterol HTN (hypertension) Social History Patient Tobacco Use Status: Former Tobacco user Physical Exam Vital Signs: BMI result Body Mass Index 27.3 Const General: no acute distress and alert Orientation/consciousness: patient oriented x3 Neuro General: patient oriented x3 Extrem Other: The patient was alert oriented and in no acute distress The ~8mm of tissue both volar and dorsal to the fingertip appear dusky, which is not really a change for the last few visits. Just does not look as healthy as more proximal to this area. Wound at tip of finger is still healing. No exudate seen today but they are still this thickened yellow tissue. Again the tissue at the tip of the finger while not infected, just does not look healthy. Some sutures still in place, now seeing overgrowth over the sutures. This is mildly tender No redness or warmth in the finger. Again the wound is dry today. He is on Augmentin again. Again he is a poorly controlled Diabetic, but his reports that he is now trying to control his diabetes better with his numbers being more around 140 during the day as opposed to about 240 He can make a fist and extend all his digits. with good active flexion & extension at the MCP & PIP joints Sensation is intact Cap refill is brisk to all other digits Psych Appearance: grossly normal Affect: normal affect Attitude: cooperative Assessment & Plan Assessment & Plan (1) Open fracture of phalanx of left middle finger: Code(s): S62.603B - Fracture of unspecified phalanx of left middle finger, initial encounter for open fracture Category: Medical (2) Partial traumatic amputation of left middle finger through phalanx: Code(s): S68.623A - Partial traumatic transphalangeal amputation of left middle finger, initial encounter Category: Medical (3) Diabetes: Code(s): E11.9 - Type 2 diabetes mellitus without complications Category: Medical Plan Assessment & Plan: 1. Left middle finger partial amputation, S/P A) revision amputation B) I&D of open fracture C) excision of germinal & sterile nail matrices DOS: 01/09/24 2. Diabetes, poorly controlled The patient appears to be healing slowly post-operatively, likely related to his poorly controlled Diabetes I educated him about the post-operative course, and I had a long discussion with him regarding managing his Diabetes & the effects of poorly managed Diabetes on wound healing & recovery Remaining sutures removed today in clinic. He will continue t take his Augmentin as instructed I educated him about wound care, and keeping the wound clean. I explained that if he continues to have difficulty with would healing he may require a second revision amputation. I discussed activity modifications, he is to lift nothing heavier than a cellphone at this time He will perform gentle ROM exercises at home He should avoid any underwater activities at this time. He is able to wash his hands with soap & water in the shower He was given a note for work to remain out of work at this time until his next appointment. He works as a [employer]. He will follow up in one-week with Dr. Frausto for wound check, sooner with any acute concerns Scribed for Junie Frausto MD by Mil Morel, medical collections, on 02/15/24 at 1:30 PM, EST. Medications: Refilled amoxicillin-pot clavulanate 875-125 mg 1 tab PO Q12H 20 tabs 0RF Coding Level of Care Code Global (95985) Diagnoses Open fracture of phalanx of left middle finger S62.603B Partial traumatic amputation of left middle finger through phalanx S68.953D Diabetes E11.9
== END 2024-02-10 13:47 | disposition home or self-care (01) ==
PROVIDERS: PCP Physician Assistant
DX: S62.603B Fracture of unspecified phalanx of left middle finger, initial encounter for open fracture (principal); S68.623A Partial traumatic transphalangeal amputation of left middle finger, initial encounter; E11.9 Type 2 diabetes mellitus without complications
CPT/HCPCS: 99024

== ENCOUNTER → 2024-02-10 13:20 | Outpatient (BNVA) | payer OTHER, SELFPAY | PROVIDERS: PCP Physician Assistant ==

== ENCOUNTER 2024-02-15 12:57 | Outpatient (AMB) | payer OTHER, SELFPAY ==
[2024-02-15 13:01] VITALS: BMI 27.3
--- NOTE | 2024-02-15 13:01 | MHC.OFFVIS ---
Vital Signs 02/15/24 13:01 Height 5 ft 6 in Weight 169 lb BMI 27.3 Intake Visit Reasons: PO 1 week LT MF rev amp 01/09/24 AR-wound check Intake Note: Ricky is a 53 year old male who presents to the office today post-operatively for a wound check, S/P left middle finger revision amputation, DOS 01/09/[address] Frausto. Patient reports better ROM as well as sensitivity. He continues to take antibiotics. Allergies No Known Allergies [No Known Allergies*] Allergy (Verified 02/15/24 13:01) HPI HPI PO 1 week LT MF rev amp 01/09/24 AR-wound check: Details: Ricky is a 53 year old right hand dominant Diabetic man who presents S/P left middle finger revision amputation, I&D of open fracture, and excision of nail matrices, DOS: 01/09/24. he is here for a wound check He says he is doing well overall. He has some pain but manages this with Motrin. He says his pain & sensitivity have improved. He has been working on ROM exercises and he has been performing daily dressing changes He continues to take his Abx as instructed. He denies any numbness or tingling. He says he takes all his Diabetes medication but he has difficulty checking his sugars daily, and he says his diet is poor. He suffers from Gastroparesis and often has a restricted liquid diet. Patient reports last known A1c to be over 11.0. Blood glucose on 01/09/2024 was 234. His says he has been doing much better with his sugars, and he says his average blood sugars at home have been ~145. He has been modifying his diet and trying to eat more salads [facility] Medical History Diabetes Elevated cholesterol HTN (hypertension) Social History Patient Tobacco Use Status: Former Tobacco user Physical Exam Vital Signs: BMI result Body Mass Index 27.3 Const General: no acute distress and alert Orientation/consciousness: patient oriented x3 Neuro General: patient oriented x3 Extrem Other: The patient was alert oriented and in no acute distress The ~8mm of tissue both volar and dorsal to the fingertip appear dusky, which is not really a change for the last few visits. Just does not look as healthy as more proximal to this area. Wound at tip of finger is still healing. No exudate seen today but they are still this thickened yellow tissue. Again the tissue at the tip of the finger while not infected, just does not look healthy. Some sutures still in place, now seeing overgrowth over the sutures. This is mildly tender No redness or warmth in the finger. Again the wound is dry today. He is on Augmentin again. Again he is a poorly controlled Diabetic, but his reports that he is now trying to control his diabetes better with his numbers being more around 140 during the day as opposed to about 240 He can make a fist and extend all his digits. with good active flexion & extension at the MCP & PIP joints Sensation is intact Cap refill is brisk to all other digits Psych Appearance: grossly normal Affect: normal affect Attitude: cooperative Assessment & Plan Assessment & Plan (1) Open fracture of phalanx of left middle finger: Code(s): S62.603B - Fracture of unspecified phalanx of left middle finger, initial encounter for open fracture Category: Medical (2) Partial traumatic amputation of left middle finger through phalanx: Code(s): S68.623A - Partial traumatic transphalangeal amputation of left middle finger, initial encounter Category: Medical (3) Diabetes: Code(s): E11.9 - Type 2 diabetes mellitus without complications Category: Medical Plan Assessment & Plan: 1. Left middle finger partial amputation, S/P A) revision amputation B) I&D of open fracture C) excision of germinal & sterile nail matrices DOS: 01/09/24 2. Diabetes, poorly controlled The patient appears to be healing slowly post-operatively, likely related to his poorly controlled Diabetes I educated him about the post-operative course, and I had a long discussion with him regarding managing his Diabetes & the effects of poorly managed Diabetes on wound healing & recovery Remaining sutures removed today in clinic. He will continue t take his Augmentin as instructed I educated him about wound care, and keeping the wound clean. I explained that if he continues to have difficulty with would healing he may require a second revision amputation. I discussed activity modifications, he is to lift nothing heavier than a cellphone at this time He will perform gentle ROM exercises at home He should avoid any underwater activities at this time. He is able to wash his hands with soap & water in the shower He was given a note for work to remain out of work at this time until his next appointment. He works as a [employer]. He will follow up in 2 weeks for a wound check. If he has not shown good evidence of healing, we may be considering a repeat revision amputation to the DIP joint level, or perhaps more proximal. Scribed for Junie Frausto MD by Mil Morel, medical service representative, on 02/15/24 at 1:30 PM, EST. Coding Level of Care Code Global (59129) Diagnoses Open fracture of phalanx of left middle finger S62.603B Partial traumatic amputation of left middle finger through phalanx S68.623A Diabetes E11.9
== END 2024-02-15 14:11 | disposition home or self-care (01) ==
LOC: HO.HOS 12:57
PROVIDERS: PCP Physician Assistant; Visit Provider Orthopaedic Surgery
DX: S62.603B Fracture of unspecified phalanx of left middle finger, initial encounter for open fracture (principal); S68.623A Partial traumatic transphalangeal amputation of left middle finger, initial encounter; E11.9 Type 2 diabetes mellitus without complications
CPT/HCPCS: 99024

== ENCOUNTER → 2024-02-15 12:57 | Outpatient (BNVA) | payer OTHER, SELFPAY | PROVIDERS: PCP Physician Assistant; Visit Provider Orthopaedic Surgery ==

== ENCOUNTER 2024-02-29 10:11 | Outpatient (REF) | payer OTHER, SELFPAY | END 2024-02-29 10:12 | disposition home or self-care (01) | LOC: HO.HOSX 10:11 | PROVIDERS: Visit Provider Orthopaedic Surgery | DX: M79.642 Pain in left hand (principal) | CPT/HCPCS: 73130 ==

== ENCOUNTER 2024-02-29 13:28 | Outpatient (AMB) | payer OTHER, SELFPAY ==
--- NOTE | 2024-02-29 14:29 | MHC.OFFVIS ---
Vital Signs 02/29/24 14:34 Height 5 ft 6 in Weight 169 lb BMI 27.3 Handedness Right Intake Visit Reasons: PO 2 week LT MF rev amp 01/09/24 Intake Note: Ricky is a 53 year old male who presents to the office today post operatively for a wound check, S/P left middle finger revision amputation, DOS 01/09/[address] Frausto. Patient reports he feels once the stitches were removed his finger started feeling better. He feels like he has healing however it is slow healing. He denies any pain. Denies numbness and tingling. He has completed his course of antibiotics last Tuesday. Allergies No Known Allergies [No Known Allergies*] Allergy (Verified 02/29/24 14:35) HPI HPI PO 2 week LT MF rev amp 01/09/24: Details: Ricky is a 53 year old right hand dominant Diabetic man who presents S/P left middle finger revision amputation, I&D of open fracture, and excision of nail matrices, DOS: 01/09/24. he is here for a wound check He says he is doing well overall. He has some pain but manages this with Motrin. He says his pain & sensitivity have improved. He has been working on ROM exercises and he has been performing daily dressing changes. He says he has been washing the wound with soap and water in the shower. He finished his antibiotics a few days ago. He says he takes all his Diabetes medication but he has difficulty checking his sugars daily, and he says his diet is poor. He suffers from Gastroparesis and often has a restricted liquid diet. Patient reports last known A1c to be over 11.0. Blood glucose on 01/09/2024 was 234. He has been trying to do better about controlling his blood glucose. His says he has been doing much better with his sugars, and he says his average blood sugars at home have been ~145. He has been modifying his diet and trying to eat more salads [facility] Medical History Diabetes Elevated cholesterol HTN (hypertension) Social History Patient Tobacco Use Status: Former Tobacco user Physical Exam Vital Signs: BMI result Body Mass Index 27.3 Extrem Other: The patient was alert oriented and in no acute distress. Again the sutures were removed last visit. He has some old skin, much like a callus around much of the tip of the finger. There is also still a small open wound over the dorsal distal aspect of the finger. This is a small amount of granulation tissue. I debrided the skin, removing the thick callus like skin from around the distal cm of the finger. Again we still see that the skin at the tip of the finger does not have great cap refill. Proximal to this the skin does appear more pink. No generalized erythema. No generalized swelling of the finger. A small, 4 mm x 3 mm area of granulation tissue on the dorsal distal aspect of the finger. No drainage. He can bring all of the fingers including this middle finger close to a fist and then back into full extension. All in all I would say that the finger does look a little bit better than last visit. I did tell him he is not out of the demarco yet. Assessment & Plan Assessment & Plan (1) Diabetes: Code(s): E11.9 - Type 2 diabetes mellitus without complications Category: Medical (2) Partial traumatic amputation of left middle finger through phalanx: Code(s): S68.623A - Partial traumatic transphalangeal amputation of left middle finger, initial encounter Category: Medical (3) Open fracture of phalanx of left middle finger: Code(s): S62.603B - Fracture of unspecified phalanx of left middle finger, initial encounter for open fracture Category: Medical Plan Assessment & Plan: 1. Left middle finger partial amputation, S/P A) revision amputation B) I&D of open fracture C) excision of germinal & sterile nail matrices DOS: 01/09/24 2. Diabetes, poorly controlled The patient appears to be healing slowly post-operatively, likely related to his poorly controlled Diabetes I educated him about the post-operative course, and I had a long discussion with him regarding managing his Diabetes & the effects of poorly managed Diabetes on wound healing & recovery He finish his Augmentin about 3 days ago. I educated him about wound care, and keeping the wound clean. I explained that if he continues to have difficulty with would healing he may require a second revision amputation. He should avoid any underwater activities at this time. He is able to wash his hands with soap & water in the shower He was given a note for work to remain out of work at this time until his next appointment. He works as a [employer]. He will follow up in 2 weeks for a wound check as long as things are going well. He may come in sooner if he has any concerns. If he has not shown good evidence of healing, we may be considering a repeat revision amputation to the DIP joint level, or perhaps more proximal. Orders: Orders XR hand LT min 3V Today M79.642 - Pain in left hand Coding Level of Care Code Global (35026) Diagnoses Diabetes E11.9 Partial traumatic amputation of left middle finger through phalanx S68.626F Open fracture of phalanx of left middle finger S62.604J
[2024-02-29 14:34] VITALS: BMI 27.3
== END 2024-02-29 16:00 | disposition home or self-care (01) ==
PROVIDERS: PCP Physician Assistant; Visit Provider Orthopaedic Surgery
DX: E11.9 Type 2 diabetes mellitus without complications (principal); S68.623A Partial traumatic transphalangeal amputation of left middle finger, initial encounter; S62.603B Fracture of unspecified phalanx of left middle finger, initial encounter for open fracture
CPT/HCPCS: 99024

== ENCOUNTER 2024-03-20 08:19 | Outpatient (REF) | payer OTHER, SELFPAY | END 2024-03-20 08:20 | disposition home or self-care (01) | LOC: HO.HOSX 08:19 | DX: M79.642 Pain in left hand (principal) | CPT/HCPCS: 73130 ==

== ENCOUNTER 2024-03-20 10:14 | Outpatient (AMB) | payer OTHER, SELFPAY ==
--- NOTE | 2024-03-20 10:44 | MHC.OFFVIS ---
Vital Signs 03/20/24 10:46 Height 5 ft 6 in Weight 169 lb BMI 27.3 Handedness Right Intake Visit Reasons: PO: LT rev amp 01/09/24 Intake Note: Ricky is a 53 year old male who presents to the office today post operatively for a wound check, S/P left middle finger revision amputation, DOS 01/09/[address] Frausto. Patient reports he has been having some drainage from his left middle finger but says it is not much. Denies any pain, numbness and tingling. He reports sensitivity with palpitation. He is able to make a full closed fist. Allergies No Known Allergies [No Known Allergies*] Allergy (Verified 03/20/24 10:48) HPI HPI PO: LT MF rev amp 01/09/24: Details: Patient is a 53-year-old male who presents for postoperative evaluation status post left middle finger revision amputation, DOS 01/09/2024. Today, the patient reports that he is feeling well, and experiences no pain at baseline. The patient does report that he does get some scant discharge from the area on his dressings, but this is not purulent at all. The patient inquires if he will need another surgery. Patient does state that his diabetes has been much better controlled, with averages of the approximately 130. No other acute complaints or concerns at this time. [facility] Medical History Diabetes Elevated cholesterol HTN (hypertension) Social History Patient Tobacco Use Status: Former Tobacco user Review of Systems Const All systems reviewed & are unremarkable except as noted in HPI and below Physical Exam Vital Signs: BMI result Body Mass Index 27.3 Extrem Other: The patient was alert oriented and in no acute distress. Again the sutures were removed last visit. There is also still a small open wound over the dorsal distal aspect of the finger. This is a small amount of granulation tissue. Appearance has improved significantly since last visit There is some redness noted around the surgery site, however there is no evidence of edema or other evidence of infection. This appears to be more hyperemic in origin No generalized swelling of the finger. No drainage. He can bring all of the fingers including this middle finger close to a fist and then back into full extension. All in all I would say that the finger does look significantly better than last visit. I did tell him he is not out of the demarco yet. Results Reviewed Results Reviewed: X-rays obtained in the office today and independently reviewed by me, Ramo Gudino PA-C, demonstrate surgically shortened distal phalanx of the left middle finger with no evidence of osteomyelitis or new fracture. Assessment & Plan Assessment & Plan (1) Partial traumatic amputation of left middle finger through phalanx: Code(s): S68.623A - Partial traumatic transphalangeal amputation of left middle finger, initial encounter Category: Medical (2) Diabetes: Code(s): E11.9 - Type 2 diabetes mellitus without complications Category: Medical Plan 1. Traumatic amputation of left middle finger status post and revision DOS 01/09/2024 Patient appears to be recovering moderately well postoperatively Patient is educated about the typical recovery course Patient was evaluated with Dr. Frausto, who was available to see the patient with me today, and a collaborative treatment plan was formed: At this time, patient was informed that Dr. Frausto and I both feel that we can hold off on repeat surgery for now, as he does appear to be healing well and he has gotten his diabetes under much better control Patient was amenable to this plan Patient was advised he should continue to keep the area clean and dry and dressed while out and about, but he can wash it with soap and water in the sink or shower Patient will follow-up in [address] Frausto for reassessment, sooner with any acute concerns Orders: Orders XR hand LT min 3V Today M79.642 - Pain in left hand Coding Level of Care Code Global (95108) Diagnoses Partial traumatic amputation of left middle finger through phalanx S68.623A Diabetes E11.9
[2024-03-20 10:46] VITALS: BMI 27.3
== END 2024-03-20 11:14 | disposition home or self-care (01) ==
PROVIDERS: PCP Physician Assistant
DX: S68.623A Partial traumatic transphalangeal amputation of left middle finger, initial encounter (principal); E11.9 Type 2 diabetes mellitus without complications
CPT/HCPCS: 99024

== ENCOUNTER 2024-04-03 15:03 | Outpatient (AMB) | payer OTHER, SELFPAY ==
[2024-04-03 15:14] VITALS: BMI 27.3
--- NOTE | 2024-04-03 15:14 | MHC.OFFVIS ---
Vital Signs 04/03/24 15:14 Height 5 ft 6 in Weight 169 lb BMI 27.3 Intake Visit Reasons: PO: LT MF rev amp 01/09/24-2 WK f/U with AR Intake Note: Ricky 53 year old male who presents to the office today post operatively for a wound check, S/P left middle finger revision amputation, DOS 01/09/[address] Frausto. States he is here to discuss if a re vision is needed. States his would is slightly open. Allergies No Known Allergies [No Known Allergies*] Allergy (Verified 04/03/24 15:28) HPI HPI PO: LT MF rev amp 01/09/24-2 WK f/U with AR: Details: Ricky is a 53 year old right hand dominant Diabetic man who presents S/P left middle finger revision amputation, I&D of open fracture, and excision of nail matrices, DOS: 01/09/24. He has had slow healing of this wound secondary to his originally uncontrolled diabetes. He is here for a wound check He says he is doing well overall. He is concerned that the wound is still slightly open and if he needs to consider a revision surgery. He says he takes all his Diabetes medication but he has difficulty checking his sugars daily, and he says his diet is poor. He suffers from Gastroparesis and often has a restricted liquid diet. Patient reports last known A1c to be over 11.0. Blood glucose on 01/09/2024 was 234. He says his more recent sugars have been ~130s He has been trying to do better about controlling his blood glucose. [facility] Medical History Diabetes Elevated cholesterol HTN (hypertension) Social History (Updated 04/03/24 @ 15:29 by J LUIS Barnard) Patient Tobacco Use Status: Former Tobacco user Current occupation: rt hand/ blacksmith worker Review of Systems Const All systems reviewed & are unremarkable except as noted in HPI and below Physical Exam Vital Signs: BMI result Body Mass Index 27.3 Const General: no acute distress and alert Orientation/consciousness: patient oriented x3 Neuro General: patient oriented x3 Extrem Other: The patient was alert oriented and in no acute distress. There is also still a small, 6mm in diameter area of granulation tissue on the dorsal distal aspect of the finger. No drainage. Appearance has improved significantly since last visit. The finger from the middle phalanx distally continues to look somewhat hyperemic. Cap refill is reasonable today.. No generalized erythema or swelling. Not particularly tender He can bring all of the fingers including this middle finger closed to a fist and then back into full extension. Psych Appearance: grossly normal Affect: normal affect Attitude: cooperative Assessment & Plan Assessment & Plan (1) Partial traumatic amputation of left middle finger through phalanx: Code(s): S68.623A - Partial traumatic transphalangeal amputation of left middle finger, initial encounter Category: Medical (2) Open fracture of phalanx of left middle finger: Code(s): S62.603B - Fracture of unspecified phalanx of left middle finger, initial encounter for open fracture Category: Medical (3) Diabetes: Code(s): E11.9 - Type 2 diabetes mellitus without complications Category: Medical Plan Assessment & Plan: 1. Left middle finger partial amputation, S/P A) revision amputation B) I&D of open fracture C) excision of germinal & sterile nail matrices DOS: 01/09/24 2. Diabetes, poorly controlled The patient appears to be healing slowly post-operatively, secondary to his poorly controlled Diabetes. He has been working on his Diabetes management and says his daily sugars are much lower than in the past. He is scheduled for a repeat HgA1c for sometime in April. I recommend surgery, depending on his wound healing and future HgA1c The risks and benefits of operative treatment were discussed with the patient and the patient wishes to proceed with surgery. These risks include, but are not limited to risk of damage to blood vessels, nerves, tendons, infection, recurrence, incomplete relief of preoperative symptoms, persistent pain, possible need for further surgery and the risks associated with regional blocks and anesthesia. The plan is to take the patient to the operating room sometime in late April for the following procedures: 1. Left middle finger revision amputation & wound modification, under local All of the preoperative paperwork including the consent was reviewed today. All the patient's questions were answered. The patient understands that they will be contacted by our supervisor sawmill soon to schedule this procedure He denies blood thinners, asthma, heart, lung, kidney issues I educated him about wound care, and keeping the wound clean. He has been washing his hands with soap & water daily, as well as applying Abx ointment, and is keeping this clean & dry otherwise. He should avoid any underwater activities at this time. He was given a note for work to remain out of work at this time until his next appointment. He works as a Blacksmith. He will follow up in 3-4 weeks for a wound check, this should be with an updated HgA1c. We will make a final decision on whether or not he would benefit from surgery depending on wound healing & his Diabetes control. Scribed for Junie Frausto MD by Mil Morel, nuclear medicine medical director, on 04/03/24 at 3:50 PM, EST. Coding Level of Care Code Global (88118) Diagnoses Partial traumatic amputation of left middle finger through phalanx S68.623A Open fracture of phalanx of left middle finger S62.603B Diabetes E11.9
== END 2024-04-03 16:16 | disposition home or self-care (01) ==
PROVIDERS: PCP Physician Assistant; Visit Provider Orthopaedic Surgery
DX: S68.623A Partial traumatic transphalangeal amputation of left middle finger, initial encounter (principal); S62.603B Fracture of unspecified phalanx of left middle finger, initial encounter for open fracture; E11.9 Type 2 diabetes mellitus without complications
CPT/HCPCS: 99024

== ENCOUNTER → 2024-04-03 15:03 | Outpatient (BNVA) | payer OTHER, SELFPAY | PROVIDERS: PCP Physician Assistant; Visit Provider Orthopaedic Surgery ==

== ENCOUNTER 2024-05-02 14:28 | Outpatient (AMB) | payer OTHER, SELFPAY ==
[2024-05-02 14:57] VITALS: BMI 27.3
--- NOTE | 2024-05-02 14:57 | A.OFFVIS_ITS ---
Vital Signs 05/02/24 14:57 Height 5 ft 6 in Weight 169 lb BMI 27.3 Intake Visit Reasons: OV- wound check/LT MF rev amp 05/10/24 AR Intake Note: Ricky 53 year old male who presents to the office today S/P left middle finger revision amputation, DOS 01/09/[address] Frausto. States he is here to discuss if a re vision is needed. States his A1C is 7.1 and he states he is doing well. 3 days ago he had a little drainage from his wound but has been better over all since his diabetes is under control. Allergies No Known Allergies [No Known Allergies*] Allergy (Verified 05/02/24 15:04) HPI HPI OV- wound check/LT MF rev amp 05/10/24 AR: Details: Ricky is a 53 year old right hand dominant Diabetic man who presents S/P left middle finger revision amputation, I&D of open fracture, and excision of nail matrices, DOS: 01/09/24. He has had slow healing of this wound secondary to his originally uncontrolled diabetes. He is here for a wound check He says he is doing well overall. He is concerned that the wound is still slightly open & draining. He says he takes all his Diabetes medication but he has difficulty checking his sugars daily, and he says his diet is poor. He suffers from Gastroparesis and often has a restricted liquid diet. His most recent HgA1c was 7.1%. 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 There is a hard white piece protruding from the dorsal tip of the finger. This is either a piece of nail or bone Fingertip not particularly tender He still has some erythema/hyperemia to the distal aspect of the finger No drainage He can bring all of the fingers including this middle finger closed to a fist and then back into full extension. Psych Appearance: grossly normal Affect: normal affect Attitude: cooperative Assessment & Plan Assessment & Plan (1) Partial traumatic amputation of left middle finger through phalanx: Code(s): S68.623A - Partial traumatic transphalangeal amputation of left middle finger, initial encounter Category: Medical (2) Open fracture of phalanx of left middle finger: Code(s): S62.603B - Fracture of unspecified phalanx of left middle finger, initial encounter for open fracture Category: Medical (3) Diabetes: Code(s): E11.9 - Type 2 diabetes mellitus without complications Category: Medical Plan Assessment & Plan: 1. Left middle finger partial amputation, S/P A) revision amputation B) I&D of open fracture C) excision of germinal & sterile nail matrices DOS: 01/09/24 2. Diabetes, poorly controlled The patient appears to be healing slowly post-operatively, secondary to his poorly controlled Diabetes. He has been working on his Diabetes management and says his daily sugars are much lower than in the past. The risks and benefits of operative treatment were discussed with the patient and the patient wishes to proceed with surgery. These risks include, but are not limited to risk of damage to blood vessels, nerves, tendons, infection, recurrence, incomplete relief of preoperative symptoms, persistent pain, possible need for further surgery and the risks associated with regional blocks and anesthesia. The plan is to take the patient to the operating room sometime on 05/07/24 for the following procedures: 1. Left middle finger revision amputation vs excision of nail matrix, under local All of the preoperative paperwork including the consent was reviewed today. All the patient's questions were answered. He denies blood thinners, asthma, heart, lung, kidney issues He is a Diabetic, his most recent HgA1c was 7.1% He was given a note for work to remain out of work at this time until his next appointment. He works as a Blacksmith. Scribed for Junie Frausto MD by Mil Morel medical lab technologist, on 05/02/24 at 3:15 PM, EST. Coding Level of Care Code Est Pt Level 4 (91470) Diagnoses Partial traumatic amputation of left middle finger through phalanx S68.623A Open fracture of phalanx of left middle finger S62.603B Diabetes E11.9
== END 2024-05-02 15:31 | disposition home or self-care (01) ==
PROVIDERS: PCP Physician Assistant; Visit Provider Orthopaedic Surgery
DX: S68.623A Partial traumatic transphalangeal amputation of left middle finger, initial encounter (principal); E11.9 Type 2 diabetes mellitus without complications
CPT/HCPCS: 99214

== ENCOUNTER → 2024-05-02 14:28 | Outpatient (BNVA) | payer OTHER, SELFPAY | PROVIDERS: PCP Physician Assistant; Visit Provider Orthopaedic Surgery ==

== ENCOUNTER 2024-05-07 11:06 | Day surgery (SDC) | payer OTHER, SELFPAY ==
[2024-05-07 11:24] VITALS: BP 148/84; PULSE 103; RESP 16; TEMP 36.5; O2SAT 98
[2024-05-07 11:26] VITALS: BP 148/84; PULSE 91; RESP 16; TEMP 36.4; O2SAT 98; BMI 27.3
--- NOTE | 2024-05-07 11:27 | MHC.SHP ---
Pre-Procedural Eval Section A - 24 Hr Update-Section A only Date of Service: 05/07/24 Changes since office visit: No Cold of Flu in the past 2 weeks, No New Medical Problems, No Changes in Medication and No Patient answered all questions The patient has been examined within 24 hours of the surgical procedure. The History & Physical has been completed within 30 days and I have reviewed it.: Yes Section B - Complete if H&P > 30 days Chief Complaint: Partial traumatic transphalangeal amputation of Allergies: Allergies Allergy/AdvReac Type Severity Reaction Status Date / Time No Known Allergies Allergy Verified 05/02/24 15:04 [No Known Allergies*] Plan Diagnosis/Plan: Unchanged I have reviewed the history and physical and performed a pertinent physical examination on my patient. No changes have occurred unless specified. Time Spent With Patient Time: Total time managing care of this patient today ____ minutes.
--- NOTE | 2024-05-07 11:27 | W.PM.OPN ---
Operative Note Operative Note Date of Service: 05/07/24 Narrative: Operative Note Preop diagnosis: 1. Left middle finger chronic wound status post amputation in patient with diabetes Postop diagnosis: same Procedure: 1. Left middle finger revision amputation 2. Left middle finger excision of sterile nail matrix Surgeon: Junie Frausto MD Vulcanizing Machine Operator: None Anesthesia: digital block using 1% lidocaine with epinephrine Findings: Distal skin flap curled under without healing to proximal skin edge. This distal edge of the skin flap was thickened and abnormal in appearance, and was excised and sent to pathology EBL: Less than 5 mL Tourniquet time: None Specimens: Thickened abnormal appearing edge of the distal skin flap in patient status post revision amputation Complications: None Disposition: Brought to recovery room in stable condition Plan: I placed him on a 5 day course of Augmentin as a precaution because of the chronic wound, history of diabetes that had previously been out of control, and the proximity of the bony distal phalanx in our dissection today. Follow-up for 7-10 days for wound check and to check pathology. Anticipate suture removal at 3 weeks postop. Indications: The patient is a 53-year-old man who is status post a revision amputation of his left middle finger at a time when he had a hemoglobin A1c of over 13. He went on to have delayed wound healing, that then appeared to either have protruding bone or perhaps persistent nail sticking out of the dorsal distal aspect of the revision amputation site. Radiographs appeared to show adequate soft tissue coverage. The risks and benefits of operative treatment including but not limited to risk of damage to blood vessels, nerves, tendons, infection, persistent pain, persistent symptoms, recurrence or possible need for additional surgery were discussed with the patient and the patient wishes to proceed with surgery. Procedure: Once consent was obtained a digital block was performed in the preop area using a combination of 1% lidocaine with epinephrine. The patient was then brought back to the operating suite and placed on the operative table in supine position. A tourniquet was applied to the proximal aspect of the left upper extremity and the limb was prepped and draped in a standard surgical fashion. Once assured that we had a good block, a finger tourniquet was applied to the proximal aspect of the left middle finger and I used a [place] elevator to elevate the proximal skin off of what I believe to either be protruding bone or a persistent finger nail. I made two 4 mm oblique incisions at the edge of what I at 1st thought might be the edge of the eponychial fold. I then used the [place] elevator and then a 15 blade to elevate this proximal skin edge off of the nail/bone. This then allowed me to further explore and mobilize this hardened tissue. Interestingly, this ultimately did not appear to be bone or likely finger nail, but rather appeared to be the edge of the distal skin flap that had curled down on itself and then became thickened, keratotic and did not successfully healed to the proximal skin flap at the time of his revision amputation. I excised the distal 3 mm or so from the skin edge removed it from the patient and placed on the back table to be sent for histopathology. Proximally, and beneath the proximal skin edge I then excised persistent sterile and possible germinal matrix using a 15. Blade and rongeur. The dorsal and distal aspect of the remaining distal phalanx was visualized. At this point the wound was copiously irrigated with normal saline. I did remove some scar tissue from just distal to the bone to allow improved mobilization of the distal flap of tissue. I was then able to nicely reapproximate the proximal and distal skin flaps. The skin edges were reapproximated using some 4-0 Prolene suture. They came together nicely and were not under tension. At this point the finger tourniquet was removed at fewer than 30 minutes, and we had good cap refill to the tip of the digit. A sterile dressing was then applied. The patient appears to have tolerated the procedure well and with no complications. All digits were well vascularized at the conclusion of the case.
[2024-05-07 13:27] VITALS: BP 134/81; PULSE 86; RESP 20; O2SAT 98
== END 2024-05-07 13:29 | disposition home or self-care (01) ==
PROVIDERS: PCP Physician Assistant; Visit Provider Orthopaedic Surgery
PROC: (CPT 11750; principal; 2024-05-07 13:10)
DX: T87.89 Other complications of amputation stump (principal); Y83.5 Amputation of limb(s) as the cause of abnormal reaction of the patient, or of later complication, without mention of misadventure at the time of the procedure; L57.0 Actinic keratosis; E11.52 Type 2 diabetes mellitus with diabetic peripheral angiopathy with gangrene; I96 Gangrene, not elsewhere classified; L98.498 Non-pressure chronic ulcer of skin of other sites with other specified severity; L89.893 Pressure ulcer of other site, stage 3; E11.43 Type 2 diabetes mellitus with diabetic autonomic (poly)neuropathy; K31.84 Gastroparesis; I10 Essential (primary) hypertension; E78.00 Pure hypercholesterolemia, unspecified; Z79.4 Long term (current) use of insulin; Z79.85 Long-term (current) use of injectable non-insulin antidiabetic drugs; Z79.84 Long term (current) use of oral hypoglycemic drugs; Z79.899 Other long term (current) drug therapy; Z87.891 Personal history of nicotine dependence
CPT/HCPCS: 11750; 11420; 88304

== ENCOUNTER → 2024-05-07 11:06 | Outpatient (BNV) | payer OTHER, SELFPAY | PROVIDERS: PCP Physician Assistant; Visit Provider Orthopaedic Surgery | DX: S61.303A Unspecified open wound of left middle finger with damage to nail, initial encounter (principal) | CPT/HCPCS: 26952 ==

== ENCOUNTER 2024-05-22 12:22 | Outpatient (AMB) | payer OTHER, SELFPAY ==
--- NOTE | 2024-05-22 12:34 | A.OFFVIS_ITS ---
Vital Signs 05/22/24 12:43 Height 5 ft 6 in Weight 169 lb BMI 27.3 Intake Visit Reasons: PO LT MF rev amp 05/07/24 AR Intake Note: Ricky 53 yr old right hand dominant male presents today for his P/O visit for his left middle finger rev amp 05/07/[address] Frausto. Patient reports some numbness and tingling. Patient states he completed taking his antibiotics. Allergies No Known Allergies [No Known Allergies*] Allergy (Verified 05/22/24 12:42) HPI HPI PO LT MF rev amp 05/07/24 AR: Details: Ricky is a 53 year old right hand dominant Diabetic man who returns S/P left middle finger repeat revision amputation & excision of nail matrices, DOS: 05/07/24. Original DOS: 01/09/24. He has had slow healing of this wound secondary to his originally uncontrolled diabetes. He is here for a wound check He says he is doing well overall. He does report some numbness & tingling to his finger tip. He has completed his course of Abx and denies any symptoms of infection He says he takes all his Diabetes medication but he has difficulty checking his sugars daily, and he says his diet is poor. He suffers from Gastroparesis and often has a restricted liquid diet. His most recent HgA1c was 7.1%. [facility] Medical History Diabetes Elevated cholesterol HTN (hypertension) Social History Patient Tobacco Use Status: Former Tobacco user Current occupation: rt hand/ blacksmith worker Review of Systems Const All systems reviewed & are unremarkable except as noted in HPI and below Physical Exam Vital Signs: BMI result Body Mass Index 27.3 Const General: no acute distress and alert Orientation/consciousness: patient oriented x3 Neuro General: patient oriented x3 Extrem Other: The patient was alert oriented and in no acute distress The incision is healing well with no erythema drainage or evidence of infection. Some mild stiffness in his middle finger PIP joint, ~0-70 degrees ROM He can bring his other fingers closed to a fist and back into full extension Sensation is intact Cap refill is brisk Pathology report from 05/07/24: Diagnosis Skin, left middle finger, excision: Ulcerated and necrotic acral skin Psych Appearance: grossly normal Affect: normal affect Attitude: cooperative Assessment & Plan Assessment & Plan (1) Partial traumatic amputation of left middle finger through phalanx: Code(s): S68.623A - Partial traumatic transphalangeal amputation of left middle finger, initial encounter Category: Medical (2) Diabetes: Code(s): E11.9 - Type 2 diabetes mellitus without complications Category: Medical Plan Assessment & Plan: 1. Left middle finger partial amputation, S/P A) repeat revision amputation B) excision of sterile nail matrix DOS: 05/07/24, 01/09/24 2. Diabetes, poorly controlled The patient appears to be doing well post-operatively I educated him about the post-operative course I explained the signs and symptoms of infection He will perform gentle finger ROM exercises at home He should avoid any underwater activities at this time He will follow up in 2 weeks for a wound check and suture removal He was given a note for work to remain out of work at this time until his next appointment. He works as a Blacksmith. Scribed for Junie Frausto MD by Mil Morel, medical laboratory manager, on 05/22/24 at 12:55 PM, EST. Coding Level of Care Code Global (26974) Diagnoses Partial traumatic amputation of left middle finger through phalanx S68.623A Diabetes E11.9
[2024-05-22 12:43] VITALS: BMI 27.3
== END 2024-05-22 13:25 | disposition home or self-care (01) ==
PROVIDERS: PCP Physician Assistant; Visit Provider Orthopaedic Surgery
DX: S68.623A Partial traumatic transphalangeal amputation of left middle finger, initial encounter (principal); E11.9 Type 2 diabetes mellitus without complications
CPT/HCPCS: 99024

== ENCOUNTER 2024-06-08 13:40 | Outpatient (AMB) | payer OTHER, SELFPAY ==
--- NOTE | 2024-06-08 13:57 | A.OFFVIS_ITS ---
Vital Signs 06/08/24 14:01 Height 5 ft 6 in Weight 169 lb BMI 27.3 Intake Visit Reasons: PO- LT MF rev amp 05/07/24 AR Intake Note: Ricky 53 yr old right hand dominant male presents today for his P/O visit for his left middle finger rev amp 05/07/[address] Frausto. Patient reports he is doing well, and continues to do daily dressing changes. He had mild pain afte r shoveling snow/ice. Denies any drainage. Allergies No Known Allergies [No Known Allergies*] Allergy (Verified 06/08/24 14:18) HPI HPI PO- LT MF rev amp 05/07/24 AR: Details: Ricky is a 53 year old right hand dominant Diabetic man who returns S/P left middle finger repeat revision amputation & excision of nail matrices, DOS: 05/07/24. Original DOS: 01/09/24. He has had slow healing of this wound secondary to his originally uncontrolled diabetes. He says he is doing well overall. He says his wound split open and he had some bleeding yesterday after bumping his finger while shovelling snow. he says he needed to shovel the car out. He has been trying to not overuse his finger otherwise. He says he takes all his Diabetes medication but he has difficulty checking his sugars daily, and he says his diet is poor. He suffers from Gastroparesis and often has a restricted liquid diet. His most recent HgA1c was 7.1%. He says he has been experiencing a worsening toothache, and is concerned about this. [facility] Medical History Diabetes Elevated cholesterol HTN (hypertension) Social History (Reviewed 06/08/24 @ 14:18 by Radha Green [facility]) Patient Tobacco Use Status: Former Tobacco user Current occupation: rt hand/ blacksmith worker Physical Exam Vital Signs: BMI result Body Mass Index 27.3 Const General: no acute distress and alert Orientation/consciousness: patient oriented x3 Neuro General: patient oriented x3 Extrem Other: The patient was alert oriented and in no acute distress He split his incision open transversely shovelling snow the other day. Currently no erythema or evidence of infection. A small amount of serosanguinous drainage seen today. Sutures removed and a single steri-strip applied He can make a fist and extend all his digits Sensation is intact Cap refill is brisk Pathology report from 05/07/24: Diagnosis Skin, left middle finger, excision: Ulcerated and necrotic acral skin Psych Appearance: grossly normal Affect: normal affect Attitude: cooperative Assessment & Plan Assessment & Plan (1) Partial traumatic amputation of left middle finger through phalanx: Code(s): S68.623A - Partial traumatic transphalangeal amputation of left middle finger, initial encounter Category: Medical (2) Diabetes: Code(s): E11.9 - Type 2 diabetes mellitus without complications Category: Medical Plan Assessment & Plan: 1. Left middle finger partial amputation, S/P A) repeat revision amputation B) excision of sterile nail matrix DOS: 05/07/24, 01/09/24 2. Diabetes, poorly controlled The patient appears to be doing well post-operatively, though he split his wound open shoveling snow I educated him about the post-operative course I explained the signs and symptoms of infection Out of an abundance of caution, and due to his Hx of Diabetes, I ordered a 2 week course of PO Augmentin. I also encouraged him to go see a dentist concerning his toothache He will perform gentle finger ROM exercises at home He should avoid any underwater activities at this time He will continue to perform daily dressing changes, with a small amount of Abx ointment He will follow up in 3 weeks to see how he is doing He was given a note for work to remain out of work at this time until his next appointment. He works as a REscourmith. Scribed for Junie Frausto MD by Mil Morel [employer] forces medical sergeant, on 06/08/24 at 2:25 PM, EST. Medications: New amoxicillin-pot clavulanate 875-125 mg 1 tab PO Q12H 14 tabs 0RF Coding Level of Care Code Global (39334) Diagnoses Partial traumatic amputation of left middle finger through phalanx S68.623A Diabetes E11.9
[2024-06-08 14:01] VITALS: BMI 27.3
== END 2024-06-08 15:21 | disposition home or self-care (01) ==
PROVIDERS: PCP Physician Assistant; Visit Provider Orthopaedic Surgery
DX: S68.623A Partial traumatic transphalangeal amputation of left middle finger, initial encounter (principal); E11.9 Type 2 diabetes mellitus without complications
CPT/HCPCS: 99024

== ENCOUNTER 2024-06-27 13:44 | Outpatient (AMB) | payer OTHER, SELFPAY ==
--- NOTE | 2024-06-27 14:11 | MHC.OFFVIS ---
Vital Signs 06/27/24 14:12 Height 5 ft 6 in Weight 169 lb BMI 27.3 Intake Visit Reasons: PO- LT MF rev amp 05/07/24 AR Intake Note: Ricky 53 yr old right hand dominant male presents today for his P/O visit for his left middle finger rev amp 05/07/24 AR ROM check. States he is doing good and is able to make a fist. No pain. Allergies No Known Allergies [No Known Allergies*] Allergy (Verified 06/27/24 14:12) HPI HPI PO- LT MF rev amp 05/07/24 AR: Details: Ricky is a 53 year old right hand dominant Diabetic man who returns S/P left middle finger repeat revision amputation & excision of nail matrices, DOS: 05/07/24. Original DOS: 01/09/24. He has had slow healing of this wound secondary to his originally uncontrolled diabetes. He says he is doing well overall, and denies any pain. He does report occasional tingling that radiates from his hand up his forearm. He says he takes all his Diabetes medication but he has difficulty checking his sugars daily, and he says his diet is poor. He suffers from Gastroparesis and often has a restricted liquid diet. His most recent HgA1c was 7.1%. He says he has been experiencing a worsening toothache, and is concerned about this. [facility] Medical History Diabetes Elevated cholesterol HTN (hypertension) Social History Patient Tobacco Use Status: Former Tobacco user Current occupation: rt hand/ blacksmith worker Review of Systems Const All systems reviewed & are unremarkable except as noted in HPI and below Physical Exam Vital Signs: BMI result Body Mass Index 27.3 Const General: no acute distress and alert Orientation/consciousness: patient oriented x3 Neuro General: patient oriented x3 Extrem Other: Evaluation of Left Upper Extremity: The patient is alert, oriented, and in no acute distress Median, Ulnar, Radial nerves motor and sensory intact and sensation is normal to the tips of all digits Cap refill brisk ROM: He can make a fist and extend all his digits He can tap the tips of his fingers against the table without pain. Sensation is intact Cap refill is brisk The hyperemia in the digit appears to be improving 2 very small dark scabs on the dorsal end of the middle finger, measuring ~1.5-2mm in diameter each. No erythema, swelling or evidence of infection Pathology report from 05/07/24: Diagnosis Skin, left middle finger, excision: Ulcerated and necrotic acral skin Psych Appearance: grossly normal Affect: normal affect Attitude: cooperative Assessment & Plan Assessment & Plan (1) Partial traumatic amputation of left middle finger through phalanx: Code(s): S68.623A - Partial traumatic transphalangeal amputation of left middle finger, initial encounter Category: Medical (2) Diabetes: Code(s): E11.9 - Type 2 diabetes mellitus without complications Category: Medical Plan Assessment & Plan: 1. Left middle finger partial amputation, S/P A) repeat revision amputation B) excision of sterile nail matrix DOS: 05/07/24, 01/09/24 2. Diabetes, initially poorly controlled with an A1c of 13 He has done much better with his diabetes management The patient appears to be doing well post-operatively, and this is indeed the best that his finger has looked. I educated him about the post-operative course He will perform gentle finger ROM exercises at home he should use his hand for lightweight activities, and massage about the tip of his finger to work on desensitization. He will increase to medium weight activities over the next few weeks. He will follow up in 4 weeks to see how he is doing He was given a note for work to remain out of work until his next appointment. 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 Scribed for Junie Frausto MD by Mil Morel, medical office technologist, on 06/27/24 at 2:20 PM, EST. Coding Level of Care Code Global (88616) Diagnoses Partial traumatic amputation of left middle finger through phalanx S68.623A Diabetes E11.9
[2024-06-27 14:12] VITALS: BMI 27.3
== END 2024-06-27 14:29 | disposition home or self-care (01) ==
LOC: HO.HOS 13:45
PROVIDERS: PCP Physician Assistant; Visit Provider Orthopaedic Surgery
DX: S68.623A Partial traumatic transphalangeal amputation of left middle finger, initial encounter (principal); E11.9 Type 2 diabetes mellitus without complications
CPT/HCPCS: 99024

== ENCOUNTER → 2024-06-27 13:44 | Outpatient (BNVA) | payer OTHER, SELFPAY | PROVIDERS: PCP Physician Assistant; Visit Provider Orthopaedic Surgery ==

== ENCOUNTER 2024-07-25 08:29 | Outpatient (AMB) | payer OTHER, SELFPAY ==
--- NOTE | 2024-07-25 08:34 | A.OFFVIS_ITS ---
Vital Signs 07/25/24 08:35 Height 5 ft 6 in Weight 169 lb BMI 27.3 Intake Visit Reasons: PO- LT MF rev amp 05/07/24 AR Intake Note: Ricky 53 yr old right hand dominant male presents today for his P/O visit for his left middle finger rev amp 05/07/24 AR ROM check. States he is doing good and is able to make a fist. No pain. States he would like to discuss work status. Allergies No Known Allergies [No Known Allergies*] Allergy (Verified 07/25/24 08:38) HPI HPI PO- LT MF rev amp 05/07/24 AR: Details: Ricky is a 53 year old right hand dominant Diabetic man who returns S/P left middle finger repeat revision amputation & excision of nail matrices, DOS: 05/07/24. Original DOS: 01/09/24. He has had slow healing of this wound secondary to his originally uncontrolled diabetes. He says he is doing well overall, and denies any pain. 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 He suffers from Gastroparesis and often has a restricted liquid diet. His most recent HgA1c was 7.1%. [facility] Medical History Diabetes Elevated cholesterol HTN (hypertension) Social History Patient Tobacco Use Status: Former Tobacco user Current occupation: rt hand/ blacksmith worker Review of Systems Const All systems reviewed & are unremarkable except as noted in HPI and below Physical Exam Vital Signs: BMI result Body Mass Index 27.3 Const General: no acute distress and alert Orientation/consciousness: patient oriented x3 Neuro General: patient oriented x3 Extrem Other: Evaluation of Left Upper Extremity: The patient is alert, oriented, and in no acute distress Median, Ulnar, Radial nerves motor and sensory intact and sensation is normal to the tips of all digits Cap refill brisk ROM: He can make a fist and extend all his digits He can tap the tips of his fingers against the table without pain. Sensation is intact Cap refill is brisk The hyperemia in the digit appears to have improved Only One very small scabs remaining on the dorsal end of the middle finger, measuring ~1.5-2mm in diameter. No erythema, swelling or evidence of infection Pathology report from 05/07/24: Diagnosis Skin, left middle finger, excision: Ulcerated and necrotic acral skin Psych Appearance: grossly normal Affect: normal affect Attitude: cooperative Assessment & Plan Assessment & Plan (1) Partial traumatic amputation of left middle finger through phalanx: Code(s): S68.623A - Partial traumatic transphalangeal amputation of left middle finger, initial encounter Category: Medical (2) Diabetes: Code(s): E11.9 - Type 2 diabetes mellitus without complications Category: Medical Plan Assessment & Plan: 1. Left middle finger partial amputation, S/P A) repeat revision amputation B) excision of sterile nail matrix DOS: 05/07/24, 01/09/24 2. Diabetes, initially poorly controlled with an A1c of 13 He has done much better with his diabetes management The patient appears to be doing well post-operatively, and this is indeed the best that his finger has looked. I educated him about the post-operative course He will continue to perform finger ROM exercises at home He should use his hand for medium-weight activities, and continue to massage about the tip of his finger to work on desensitization. He will increase to heavyweight activities over the next few weeks. 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 Coding Level of Care Code Global (46276) Diagnoses Partial traumatic amputation of left middle finger through phalanx S68.623A Diabetes E11.9
[2024-07-25 08:35] VITALS: BMI 27.3
== END 2024-07-25 09:08 | disposition home or self-care (01) ==
LOC: HO.HOS 08:30
PROVIDERS: PCP Physician Assistant; Visit Provider Orthopaedic Surgery
DX: S68.623A Partial traumatic transphalangeal amputation of left middle finger, initial encounter (principal); E11.9 Type 2 diabetes mellitus without complications
CPT/HCPCS: 99024

== ENCOUNTER → 2024-07-25 08:29 | Outpatient (BNVA) | payer OTHER, SELFPAY | PROVIDERS: PCP Physician Assistant; Visit Provider Orthopaedic Surgery ==